=== PATIENT | female | born 1960 | race Caucasian/White ===

== ENCOUNTER 2021-02-01 11:03 | Day surgery (SDC) | payer MEDICAID ==
[~2021-02-01] VITALS: Ht 157.5 cm; Wt 74.8 kg
[~2021-02-01 11:03] MED LIST: GLIP10TA21 PO; LISI10TA27 PO; METF-437 PO; SIMV10TA2 PO
[2021-02-01] MEDS ORDERED: normal saline 1000ml 1,000 ML IV SCH ×2 (11:40)
[2021-02-01] MEDS ORDERED: GLYB5TAB7 PO (11:50)
[2021-02-01] MEDS ORDERED: ALOG12.5 PO (11:50)
[2021-02-01] MEDS ORDERED: MULT-1085 PO (11:51)
[2021-02-01 12:08] VITALS: BP 125/83
[2021-02-01] MEDS ORDERED: heparin sodium, porcine/PF 100unit/ml 5ML syringe ONE (12:37)
[2021-02-01] MEDS ORDERED: LIDOcaine 1%/PF 5ML 10 MG/ML VIAL ONE (12:38)
[2021-02-01] MEDS ORDERED: fentaNYL/PF 50MCG/1 ML 2ML syringe ONE ×2 (12:38→13:32)
[2021-02-01] MEDS ORDERED: midazolam 1 mg/ML 2ml injection ONE ×2 (12:38→13:32)
[2021-02-01 14:11] VITALS: BP 117/71
[2021-02-01 14:30] VITALS: BP 106/67
[2021-02-01 14:45] VITALS: BP 99/69
[2021-02-01 15:00] VITALS: BP 101/74
== END 2021-02-01 15:20 | disposition home or self-care (01) ==
LOC: SSTAY O 11:03
PROVIDERS: ATTEND Radiology Diagnostic Radiology
DX: C50.911 Malignant neoplasm of unspecified site of right female breast (principal); E11.9 Type 2 diabetes mellitus without complications; I10 Essential (primary) hypertension; E78.00 Pure hypercholesterolemia, unspecified; Z79.899 Other long term (current) drug therapy; Z98.890 Other specified postprocedural states; Z79.84 Long term (current) use of oral hypoglycemic drugs
CPT/HCPCS: 36561; 76937; 77001; 82948; 99152; 99153; C1769; C1788; C1894; J1642; J2250; J3010; J7030

== ENCOUNTER 2021-10-14 08:33 | Day surgery (SDC) | payer MEDICAID ==
[~2021-10-14] VITALS: Ht 162.6 cm; Wt 72.5 kg
[~2021-10-14 08:33] MED LIST changes: +ALOG12.5 PO; -GLIP10TA21 PO; +GLYB5TAB7 PO; +MULT-1085 PO
[2021-10-14 09:00] VITALS: BP 143/73
[2021-10-14] MEDS ORDERED: ANAS1TAB10 PO (09:03)
[2021-10-14] MEDS ORDERED: EMPA25TA PO (09:03)
[2021-10-14] MEDS ORDERED: LANTUS SQ (09:03)
[2021-10-14] MEDS ORDERED: LIDOcaine 1%/PF 5ML 10 MG/ML VIAL ONE ×2 (09:27→09:34)
[2021-10-14 09:38] VITALS: BP 148/64
[2021-10-14 10:04] VITALS: BP 136/69
[2021-10-14 10:16] VITALS: BP 135/90
[2021-10-14 10:30] VITALS: BP 140/76
== END 2021-10-14 10:50 | disposition home or self-care (01) ==
LOC: SSTAY O 08:33
PROVIDERS: ATTEND Radiology Diagnostic Radiology
DX: Z45.2 Encounter for adjustment and management of vascular access device (principal); C50.411 Malignant neoplasm of upper-outer quadrant of right female breast; E78.5 Hyperlipidemia, unspecified; I10 Essential (primary) hypertension; E11.9 Type 2 diabetes mellitus without complications; Z79.899 Other long term (current) drug therapy; Z79.4 Long term (current) use of insulin
CPT/HCPCS: 36590; 82948; J3490; J7030; A4620